=== PATIENT | female | born 1950 ===

== ENCOUNTER 2017-12-15 09:18 | Outpatient (CLI) | payer OTHER ==
[~2017-12-15 09:18] MED LIST: BENZONATATE100 MG PO; COZAAR100 MG; SINGULAIR 10MG10 MG PO; SINGULAIR10 MG; SYNTHROID100 MCG; TUSSI-PRES B LIQ5 ML PO; ZYRTEC10 M3
== END 2017-12-15 09:27 | disposition home or self-care (01) ==
LOC: LAB 09:18
DX: J47.9 Bronchiectasis, uncomplicated (principal); A31.0 Pulmonary mycobacterial infection

== ENCOUNTER 2017-12-18 09:06 | Outpatient (CLI) | payer OTHER | END 2017-12-18 09:14 | disposition home or self-care (01) | LOC: TOM 09:06 | DX: J43.2 Centrilobular emphysema (principal); J30.1 Allergic rhinitis due to pollen; J47.9 Bronchiectasis, uncomplicated; A31.0 Pulmonary mycobacterial infection; R06.02 Shortness of breath; J32.4 Chronic pansinusitis ==

== ENCOUNTER → 2019-03-01 12:23 | Outpatient (CLI) | payer OTHER | END | disposition home or self-care (01) | LOC: LAB 12:23 | DX: D50.8 Other iron deficiency anemias (principal); I10 Essential (primary) hypertension; D47.2 Monoclonal gammopathy; E03.8 Other specified hypothyroidism; E04.2 Nontoxic multinodular goiter; F33.8 Other recurrent depressive disorders; R73.01 Impaired fasting glucose; D51.8 Other vitamin B12 deficiency anemias; D51.1 Vitamin B12 deficiency anemia due to selective vitamin B12 malabsorption with proteinuria; R97.0 Elevated carcinoembryonic antigen [CEA]; D51.0 Vitamin B12 deficiency anemia due to intrinsic factor deficiency ==

== ENCOUNTER 2019-03-03 08:16 | Outpatient (CLI) | payer OTHER | END 2019-03-03 08:26 | disposition home or self-care (01) | LOC: TOM 08:16 | DX: D47.2 Monoclonal gammopathy (principal); I10 Essential (primary) hypertension; E03.8 Other specified hypothyroidism; E04.2 Nontoxic multinodular goiter; F33.8 Other recurrent depressive disorders; R73.01 Impaired fasting glucose | CPT/HCPCS: 71260; 74160; Q9965 ==

== ENCOUNTER 2019-03-15 11:34 | Outpatient (CLI) | payer OTHER | END 2019-03-15 11:59 | disposition home or self-care (01) | LOC: LAB 11:34 | DX: D47.2 Monoclonal gammopathy (principal); C90.00 Multiple myeloma not having achieved remission ==

== ENCOUNTER 2019-03-21 08:33 | Outpatient (CLI) | payer OTHER | END 2019-03-21 08:46 | disposition home or self-care (01) | LOC: NUCLEAR 08:33 | DX: K82.8 Other specified diseases of gallbladder (principal) | CPT/HCPCS: 78227; A9537 ==

== ENCOUNTER 2019-05-30 07:07 | Outpatient (CLI) | payer OTHER | END 2019-05-30 07:12 | disposition home or self-care (01) | LOC: SONOGRAMA 07:07 | DX: E04.1 Nontoxic single thyroid nodule (principal) ==